=== PATIENT | male | born 1990 | race Caucasian/White ===

== ENCOUNTER 2017-03-01 13:25 | Emergency (ER) | payer OTHER ==
[~2017-03-01] VITALS: Ht 182.9 cm; Wt 85.5 kg
[2017-03-01] MEDS ORDERED: AMPICILLIN SOD/SULBACTAM SOD 3 GM in D5W MINI-BAG PLUS 100 ML IV ONE (17:30)
--- NOTE | 2017-03-01 18:10 | REP ---
Left hand series: Four views. History: Trauma. Findings: Four views of the left hand show overall normal mineralization. There is soft tissue emphysema in the dorsal soft tissues over the metacarpals. Soft tissue swelling is seen as well. No fracture or opaque foreign body is seen. Impression: Gas in the dorsal soft tissues over the metacarpals. No fracture or opaque foreign body seen. Signed by Tim Mathis MD 03/01/2017 06:41 P
--- NOTE | 2017-03-01 18:19 | REP ---
Left elbow series: Four views: History: Trauma. Olecranon process pain and swelling. Findings: Four views of the left elbow demonstrate diomedes olecranon soft tissue swelling consistent with contusion and/or olecranon bursitis. No joint effusion is seen. No fracture or subluxation is seen. No opaque foreign body noted. Impression: Diomedes olecranon soft tissue swelling. No acute bony abnormality. Signed by Tim Mathis MD 03/01/2017 06:42 P
[2017-03-01] MEDS ORDERED: KETOROLAC 30 MG/ML VIAL (J1885) IV ONE (18:30)
[2017-03-01 18:37] LABS: BASO # 0.1 K/mm3 (0.0-0.2); BASO % 0.7 % (0.0-1.0); EOS # 0.1 K/mm3 (0.0-0.50); EOS % 1.1 % (0.0-3.0); LARGE UNSTAINED CELL # 0.2 K/mm3 (0.0-0.4); LARGE UNSTAINED CELL % 1.8 % (0.0-4.0); LYMPH # 0.9 K/mm3 (1.5-6.5); LYMPH % 9.7 % (24.0-44.0); MEAN CORPUSCULAR HGB CONC 33.9 g/dl (32.0-36.5); MEAN CORPUSCULAR VOLUME 100.2 fl (80.0-96.0); MONO # 0.7 K/mm3 (0.0-0.8); MONO % 7.3 % (0.0-5.0); NEUTROPHILS # 7.5 K/mm3 (1.8-7.7); NEUTROPHILS % 79.4 % (36.0-66.0); PLATELET COUNT, AUTOMATED 177 k/mm3 (150-450); RED CELL DISTRIBUTION WIDTH 12.6 % (11.5-14.5); WHITE BLOOD COUNT 9.5 K/mm3 (4.0-10.0)
[2017-03-01 19:11] VITALS: BP 158/66
[2017-03-01] MEDS ORDERED: AUGM875T28 PO (20:03)
[2017-03-01] MEDS ORDERED: IBUP-1022 PO (20:03)
--- NOTE | 2017-03-02 10:07 | ED PDOC ---
Post-Departure Follow-Up radiology report faxed to [facility] Karolina Cole MD Mar 02, 2017 10:07
== END 2017-03-01 20:10 | disposition home or self-care (01) ==
LOC: M ED 13:25
DX: S63.92XA Sprain of unspecified part of left wrist and hand, initial encounter (principal); S60.222A Contusion of left hand, initial encounter; S50.02XA Contusion of left elbow, initial encounter; S61.432A Puncture wound without foreign body of left hand, initial encounter; L08.9 Local infection of the skin and subcutaneous tissue, unspecified; Y04.8XXA Assault by other bodily force, initial encounter; Y92.89 Other specified places as the place of occurrence of the external cause; Y93.89 Activity, other specified; Y99.8 Other external cause status; F17.200 Nicotine dependence, unspecified, uncomplicated
CPT/HCPCS: 29125; 36415; 73080; 73130; 85025; 86140; 96374; 96375; 99284; J1885

== ENCOUNTER 2017-08-24 13:48 | Inpatient (IN) | payer OTHER ==
[2017-08-24 14:27] LABS: HEMATOCRIT 48.6 % (42.0-52.0); MEAN CORPUSCULAR HEMOGLOBIN 32.8 pg (27.0-33.0); MEAN CORPUSCULAR VOLUME 93.6 fl (80.0-96.0); PLATELET COUNT, AUTOMATED 229 10^3/uL (150-450); RED BLOOD COUNT 5.19 10^6/uL (4.30-6.10); RED CELL DISTRIBUTION WIDTH 15.3 % (11.5-14.5)
[2017-08-24 14:53] LABS: AMPHETAMINES LEVEL URINE NEGATIVE (NEGATIVE); BARBITURATES URINE NEGATIVE (NEGATIVE); BENZODIAZEPINES URINE NEGATIVE (NEGATIVE); CANNABINOIDS URINE NEGATIVE (NEGATIVE); COCAINE METABOLITE URINE POSITIVE (NEGATIVE); METHADONE URINE NEGATIVE (NEGATIVE); OPIATES URINE NEGATIVE (NEGATIVE); PHENCYCLIDINE URINE NEGATIVE (NEGATIVE)
[2017-08-24 14:57] LABS: ALBUMIN 4.6 GM/DL (3.2-5.2); ALBUMIN/GLOBULIN RATIO 1.28 (1.00-1.93); ALKALINE PHOSPHATASE 94 U/L (45-117); ALT/SGPT 52 U/L (12-78); ANION GAP 9 MEQ/L (8-16); AST/SGOT 27 U/L (7-37); BILIRUBIN,DIRECT 0.1 MG/DL (0.0-0.2); BILIRUBIN,TOTAL 0.4 MG/DL (0.2-1.0); BLOOD UREA NITROGEN 8 MG/DL (7-18); CALCIUM LEVEL 9.4 MG/DL (8.5-10.1); CARBON DIOXIDE LEVEL 25 MEQ/L (21-32); CHLORIDE LEVEL 105 MEQ/L (98-107); CREATININE FOR GFR 1.18 MG/DL (0.70-1.30); ETHYL ALCOHOL (ETHANOL) 0.009 % (0.000-0.010); GLOMERULAR FILTRATION RATE > 60.0 (>60); GLUCOSE, FASTING 101 MG/DL (70-100); SALICYLATE LEVEL 2.8 MG/DL (5.0-30.0); SODIUM LEVEL 139 MEQ/L (136-145); TOTAL PROTEIN 8.2 GM/DL (6.4-8.2)
[2017-08-24 15:01] LABS: ACETAMINOPHEN LEVEL < 2.0 UG/ML (10.0-30.0)
[2017-08-24] MEDS ORDERED: ACETAMINOPHEN TAB 650MG DOSE (2X325MG) PO (15:45)
[2017-08-24] MEDS ORDERED: MOM 30ML SUSPENSION UDC PO (15:45)
[2017-08-24] MEDS ORDERED: MAALOX 30 ML SUSP *UDC PO (15:45)
[2017-08-24] MEDS: traZODone 50 MG TAB PO (21:00)
[2017-08-25] MEDS: SERTRALINE HCL 50 MG TAB PO (08:44)
[2017-08-25] MEDS: NICOTINE POLACRILEX 2 MG GUM PO ×2 (08:46→11:13)
[2017-08-25] MEDS ORDERED: SERTRALINE HCL 50 MG TAB PO (09:00)
[2017-08-25] MEDS: NICOTINE 21MG/24HR 1 EA TRANSDERMAL TD (12:01)
[2017-08-25] MEDS ORDERED: LORazepam 2 MG TAB PO (14:15)
[2017-08-25] MEDS: MULTIVITAMINS/MINERALS THERAP 1 TAB PO (14:43)
[2017-08-25] MEDS: FOLIC ACID 1 MG TAB PO (14:43)
[2017-08-25] MEDS: THIAMINE 100 MG TAB PO ×2 (14:43→20:28)
[2017-08-25] MEDS: traZODone 50 MG TAB PO (20:28)
[2017-08-25] MEDS: busPIRone 5 MG TAB PO (20:28)
[2017-08-26] MEDS: MULTIVITAMINS/MINERALS THERAP 1 TAB PO (09:18)
[2017-08-26] MEDS: buPROPion **XL** TABLET 150MG (WELLBUTRIN XL) PO (09:18)
[2017-08-26] MEDS: busPIRone 5 MG TAB PO ×2 (09:18→20:30)
[2017-08-26] MEDS: FOLIC ACID 1 MG TAB PO (09:18)
[2017-08-26] MEDS: THIAMINE 100 MG TAB PO ×2 (09:18→20:30)
[2017-08-26] MEDS: NICOTINE 21MG/24HR 1 EA TRANSDERMAL TD (09:20)
[2017-08-26] MEDS: hydrOXYzine 50 MG TAB PO (16:08)
[2017-08-27] MEDS: MULTIVITAMINS/MINERALS THERAP 1 TAB PO (08:09)
[2017-08-27] MEDS: NICOTINE 21MG/24HR 1 EA TRANSDERMAL TD (08:09)
[2017-08-27] MEDS: THIAMINE 100 MG TAB PO (08:09)
[2017-08-27] MEDS: buPROPion **XL** TABLET 150MG (WELLBUTRIN XL) PO (08:09)
[2017-08-27] MEDS: busPIRone 5 MG TAB PO (08:09)
[2017-08-27] MEDS: FOLIC ACID 1 MG TAB PO (08:09)
[2017-08-27] MEDS: hydrOXYzine 50 MG TAB PO ×2 (14:26→20:33)
[2017-08-27] MEDS: busPIRone 10 MG TAB PO (20:32)
[2017-08-28] MEDS: FOLIC ACID 1 MG TAB PO (08:22)
[2017-08-28] MEDS: MULTIVITAMINS/MINERALS THERAP 1 TAB PO (08:22)
[2017-08-28] MEDS: NICOTINE 21MG/24HR 1 EA TRANSDERMAL TD (08:22)
[2017-08-28] MEDS: buPROPion **XL** TABLET 150MG (WELLBUTRIN XL) PO (08:22)
[2017-08-28] MEDS: busPIRone 10 MG TAB PO ×2 (08:22→21:10)
[2017-08-28 13:27] LABS: CHLAMYDIA DNA AMPLIFICATION NEGATIVE (NEGATIVE); GC DNA AMPLIFICATION NEGATIVE (NEGATIVE)
[2017-08-28] MEDS: hydrOXYzine 50 MG TAB PO (21:10)
[2017-08-29] MEDS: hydrOXYzine 50 MG TAB PO ×2 (01:51→21:40)
[2017-08-29] MEDS: MULTIVITAMINS/MINERALS THERAP 1 TAB PO (08:04)
[2017-08-29] MEDS: FOLIC ACID 1 MG TAB PO (08:04)
[2017-08-29] MEDS: busPIRone 10 MG TAB PO ×2 (08:04→21:02)
[2017-08-29] MEDS: buPROPion **XL** TABLET 150MG (WELLBUTRIN XL) PO (08:04)
[2017-08-29] MEDS: NICOTINE 21MG/24HR 1 EA TRANSDERMAL TD (08:05)
[2017-08-30] MEDS: NICOTINE 21MG/24HR 1 EA TRANSDERMAL TD (08:02)
[2017-08-30] MEDS: busPIRone 10 MG TAB PO ×2 (08:02→21:04)
[2017-08-30] MEDS: MULTIVITAMINS/MINERALS THERAP 1 TAB PO (08:02)
[2017-08-30] MEDS: FOLIC ACID 1 MG TAB PO (08:02)
[2017-08-30] MEDS: buPROPion **XL** TABLET 150MG (WELLBUTRIN XL) PO (08:02)
[2017-08-30] MEDS: hydrOXYzine 50 MG TAB PO (21:04)
[2017-08-31] MEDS: MULTIVITAMINS/MINERALS THERAP 1 TAB PO (08:27)
[2017-08-31] MEDS: NICOTINE 21MG/24HR 1 EA TRANSDERMAL TD (08:27)
[2017-08-31] MEDS: FOLIC ACID 1 MG TAB PO (08:27)
[2017-08-31] MEDS: busPIRone 10 MG TAB PO ×2 (08:27→21:07)
[2017-08-31] MEDS: buPROPion **XL** TABLET 150MG (WELLBUTRIN XL) PO (08:27)
[2017-08-31] MEDS: hydrOXYzine 25 MG TAB PO (22:45)
[2017-09-01] MEDS: busPIRone 10 MG TAB PO ×2 (08:18→21:07)
[2017-09-01] MEDS: FOLIC ACID 1 MG TAB PO (08:19)
[2017-09-01] MEDS: buPROPion **XL** TABLET 150MG (WELLBUTRIN XL) PO (08:19)
[2017-09-01] MEDS: NICOTINE 21MG/24HR 1 EA TRANSDERMAL TD (08:19)
[2017-09-01] MEDS: MULTIVITAMINS/MINERALS THERAP 1 TAB PO (08:19)
[2017-09-01] MEDS: hydrOXYzine 25 MG TAB PO ×2 (14:10→22:13)
[2017-09-02] MEDS: FOLIC ACID 1 MG TAB PO (08:38)
[2017-09-02] MEDS: buPROPion **XL** TABLET 150MG (WELLBUTRIN XL) PO (08:38)
[2017-09-02] MEDS: NICOTINE 21MG/24HR 1 EA TRANSDERMAL TD (08:38)
[2017-09-02] MEDS: busPIRone 10 MG TAB PO (08:38)
[2017-09-02] MEDS: MULTIVITAMINS/MINERALS THERAP 1 TAB PO (08:38)
== END 2017-09-02 11:30 | disposition home or self-care (01) | DRG 881 ==
LOC: M ED 13:48 → M ED INP 15:35 → M PSY 17:45
DX: F32.9 Major depressive disorder, single episode, unspecified (principal); F41.9 Anxiety disorder, unspecified; F10.10 Alcohol abuse, uncomplicated; F90.9 Attention-deficit hyperactivity disorder, unspecified type; Z79.899 Other long term (current) drug therapy; G47.00 Insomnia, unspecified; F17.200 Nicotine dependence, unspecified, uncomplicated

== ENCOUNTER 2017-09-16 13:53 | Inpatient (IN) | payer OTHER ==
[2017-09-16 15:20] LABS: HEMATOCRIT 45.3 % (42.0-52.0); MEAN CORPUSCULAR HGB CONC 35.3 g/dl (32.0-36.5); MEAN CORPUSCULAR VOLUME 93.4 fl (80.0-96.0); PLATELET COUNT, AUTOMATED 234 10^3/uL (150-450); RED BLOOD COUNT 4.85 10^6/uL (4.30-6.10); RED CELL DISTRIBUTION WIDTH 14.2 % (11.5-14.5); WHITE BLOOD COUNT 12.3 10^3/uL (4.0-10.0)
[2017-09-16 15:49] LABS: ALBUMIN 4.5 GM/DL (3.2-5.2); ALBUMIN/GLOBULIN RATIO 1.36 (1.00-1.93); ALKALINE PHOSPHATASE 91 U/L (45-117); ALT/SGPT 43 U/L (12-78); ANION GAP 13 MEQ/L (8-16); AST/SGOT 37 U/L (7-37); BILIRUBIN,DIRECT 0.2 MG/DL (0.0-0.2); BILIRUBIN,TOTAL 0.9 MG/DL (0.2-1.0); BLOOD UREA NITROGEN 23 MG/DL (7-18); CALCIUM LEVEL 9.4 MG/DL (8.5-10.1); CARBON DIOXIDE LEVEL 22 MEQ/L (21-32); CHLORIDE LEVEL 101 MEQ/L (98-107); CREATININE FOR GFR 1.77 MG/DL (0.70-1.30); ETHYL ALCOHOL (ETHANOL) < 0.003 % (0.000-0.010); GLOMERULAR FILTRATION RATE 50.1 (>60); GLUCOSE, FASTING 94 MG/DL (70-100); POTASSIUM SERUM 4.5 MEQ/L (3.5-5.1); SALICYLATE LEVEL < 1.7 MG/DL (5.0-30.0); SODIUM LEVEL 136 MEQ/L (136-145); TOTAL PROTEIN 7.8 GM/DL (6.4-8.2)
[2017-09-16 16:21] LABS: ACETAMINOPHEN LEVEL < 2.0 UG/ML (10.0-30.0)
[2017-09-16 16:59] LABS: AMPHETAMINES LEVEL URINE POSITIVE (NEGATIVE); BARBITURATES URINE NEGATIVE (NEGATIVE); BENZODIAZEPINES URINE NEGATIVE (NEGATIVE); CANNABINOIDS URINE NEGATIVE (NEGATIVE); COCAINE METABOLITE URINE POSITIVE (NEGATIVE); METHADONE URINE NEGATIVE (NEGATIVE); OPIATES URINE NEGATIVE (NEGATIVE); PHENCYCLIDINE URINE NEGATIVE (NEGATIVE)
[2017-09-16] MEDS ORDERED: MOM 30ML SUSPENSION UDC PO (18:00)
[2017-09-16] MEDS ORDERED: MAALOX 30 ML SUSP *UDC PO (18:00)
[2017-09-16] MEDS ORDERED: ACETAMINOPHEN TAB 650MG DOSE (2X325MG) PO (18:00)
[2017-09-16] MEDS: OLANZapine ORAL DISINTEGRATING TAB 5MG PO (19:38)
[2017-09-16] MEDS ORDERED: HALOPERIDOL 5 MG TAB PO (20:15)
[2017-09-16] MEDS: busPIRone 10 MG TAB PO (21:47)
[2017-09-17] MEDS: NICOTINE 21MG/24HR 1 EA TRANSDERMAL TD (08:15)
[2017-09-17] MEDS: buPROPion **XL** TABLET 150MG (WELLBUTRIN XL) PO (08:15)
[2017-09-17] MEDS: busPIRone 10 MG TAB PO ×2 (08:15→21:20)
[2017-09-17] MEDS: OLANZapine ORAL DISINTEGRATING TAB 5MG PO (12:44)
[2017-09-17] MEDS: hydrOXYzine 50 MG TAB PO (21:20)
[2017-09-18 06:58] LABS: MEAN CORPUSCULAR HEMOGLOBIN 33.4 pg (27.0-33.0); MEAN CORPUSCULAR HGB CONC 34.9 g/dl (32.0-36.5); MEAN CORPUSCULAR VOLUME 95.8 fl (80.0-96.0); PLATELET COUNT, AUTOMATED 196 10^3/uL (150-450); RED BLOOD COUNT 4.49 10^6/uL (4.30-6.10); WHITE BLOOD COUNT 5.4 10^3/uL (4.0-10.0)
[2017-09-18 07:24] LABS: ALBUMIN 3.3 GM/DL (3.2-5.2); ALBUMIN/GLOBULIN RATIO 1.22 (1.00-1.93); ALKALINE PHOSPHATASE 72 U/L (45-117); ALT/SGPT 37 U/L (12-78); ANION GAP 6 MEQ/L (8-16); AST/SGOT 26 U/L (7-37); BILIRUBIN,TOTAL 0.2 MG/DL (0.2-1.0); BLOOD UREA NITROGEN 20 MG/DL (7-18); CALCIUM LEVEL 8.8 MG/DL (8.5-10.1); CARBON DIOXIDE LEVEL 28 MEQ/L (21-32); CHLORIDE LEVEL 106 MEQ/L (98-107); CREATININE FOR GFR 1.31 MG/DL (0.70-1.30); GLOMERULAR FILTRATION RATE > 60.0 (>60); GLUCOSE, FASTING 92 MG/DL (70-100); POTASSIUM SERUM 4.4 MEQ/L (3.5-5.1); SODIUM LEVEL 140 MEQ/L (136-145)
[2017-09-18] MEDS: buPROPion **XL** TABLET 150MG (WELLBUTRIN XL) PO (08:06)
[2017-09-18] MEDS: busPIRone 10 MG TAB PO ×2 (08:06→21:10)
[2017-09-18] MEDS: NICOTINE 21MG/24HR 1 EA TRANSDERMAL TD (08:07)
[2017-09-18] MEDS: OLANZapine ORAL DISINTEGRATING TAB 5MG PO (15:09)
[2017-09-18] MEDS: hydrOXYzine 50 MG TAB PO (21:10)
[2017-09-18] MEDS: traZODone 50 MG TAB PO (22:04)
[2017-09-19] MEDS: NICOTINE 21MG/24HR 1 EA TRANSDERMAL TD (08:14)
[2017-09-19] MEDS: buPROPion **XL** TABLET 150MG (WELLBUTRIN XL) PO (08:14)
[2017-09-19] MEDS: busPIRone 10 MG TAB PO ×2 (08:14→20:59)
[2017-09-19] MEDS: OLANZapine ORAL DISINTEGRATING TAB 5MG PO (14:04)
[2017-09-19] MEDS: hydrOXYzine 50 MG TAB PO (20:59)
[2017-09-19] MEDS: traZODone 50 MG TAB PO (20:59)
[2017-09-20] MEDS: buPROPion **XL** TABLET 150MG (WELLBUTRIN XL) PO (08:56)
[2017-09-20] MEDS: busPIRone 10 MG TAB PO ×2 (08:56→21:27)
[2017-09-20] MEDS: NICOTINE 21MG/24HR 1 EA TRANSDERMAL TD (08:57)
[2017-09-20] MEDS: hydrOXYzine 50 MG TAB PO (16:07)
[2017-09-20] MEDS: OLANZapine ORAL DISINTEGRATING TAB 5MG PO (16:08)
[2017-09-20] MEDS: LORazepam 1 MG TAB PO (21:27)
[2017-09-20] MEDS: traZODone 50 MG TAB PO (21:27)
[2017-09-21] MEDS: busPIRone 10 MG TAB PO (08:34)
[2017-09-21] MEDS: buPROPion **XL** TABLET 150MG (WELLBUTRIN XL) PO (08:34)
[2017-09-21 08:50] LABS: ALBUMIN/GLOBULIN RATIO 1.25 (1.00-1.93); ALKALINE PHOSPHATASE 83 U/L (45-117); ALT/SGPT 34 U/L (12-78); ANION GAP 6 MEQ/L (8-16); AST/SGOT 13 U/L (7-37); BILIRUBIN,TOTAL 0.2 MG/DL (0.2-1.0); BLOOD UREA NITROGEN 17 MG/DL (7-18); CALCIUM LEVEL 9.3 MG/DL (8.5-10.1); CARBON DIOXIDE LEVEL 30 MEQ/L (21-32); CHLORIDE LEVEL 104 MEQ/L (98-107); CREATININE FOR GFR 1.35 MG/DL (0.70-1.30); GLOMERULAR FILTRATION RATE > 60.0 (>60); GLUCOSE, FASTING 98 MG/DL (70-100); POTASSIUM SERUM 4.5 MEQ/L (3.5-5.1); SODIUM LEVEL 140 MEQ/L (136-145); TOTAL PROTEIN 7.2 GM/DL (6.4-8.2)
== END 2017-09-21 11:15 | disposition home or self-care (01) | DRG 881 ==
LOC: M ED 13:53 → M ED INP 17:56 → M PSY 19:29
DX: F32.9 Major depressive disorder, single episode, unspecified (principal); F41.9 Anxiety disorder, unspecified; F19.159 Other psychoactive substance abuse with psychoactive substance-induced psychotic disorder, unspecified; F10.10 Alcohol abuse, uncomplicated

== ENCOUNTER 2018-08-17 15:39 | Emergency (ER) | payer OTHER ==
[~2018-08-17] VITALS: Ht 182.9 cm; Wt 95.5 kg
[~2018-08-17 15:39] MED LIST: ANTA250T PO; AUGM875T28 PO; BUPR300T34 PO; BUSP10TA PO; DISU250T PO; HYDR-3363 PO; HYDR50TA70 PO; IBUP-1022 PO
[2018-08-17] MEDS ORDERED: ATOM60CA PO ×2 (15:54→17:38)
[2018-08-17] MEDS ORDERED: PROP60TA14 PO ×2 (15:54→17:38)
[2018-08-17] MEDS ORDERED: FLUO60TA6 PO (15:54)
[2018-08-17] MEDS ORDERED: FLUO40CA PO (17:38)
[2018-08-17 17:46] VITALS: BP 130/83
== END 2018-08-17 17:47 | disposition home or self-care (01) ==
LOC: M ED 15:39
DX: Z76.0 Encounter for issue of repeat prescription (principal); F32.9 Major depressive disorder, single episode, unspecified; F90.9 Attention-deficit hyperactivity disorder, unspecified type; F17.210 Nicotine dependence, cigarettes, uncomplicated

== ENCOUNTER → 2020-03-04 | Outpatient (REF) | payer BC ==
[~2020-03-04] MED LIST changes: +ATOM60CA PO; -BUPR300T34 PO; +BUPR300T92 PO; +FLUO40CA PO; +FLUO60TA6 PO; +PROP60TA14 PO
== END ==
LOC: M LAB REF 17:15
PROVIDERS: ATTEND Physician Assistant
DX: J00 Acute nasopharyngitis [common cold] (principal)

== ENCOUNTER → 2020-08-13 | Outpatient (REF) | payer BC ==
[2020-08-13 16:03] LABS: HEPATITIS C VIRUS ABY INDEX 0.1 INDEX (<0.8); HIV 1&2 SCREEN CENTAUR NEGATIVE (NEGATIVE)
== END ==
LOC: M LAB REF 12:18
PROVIDERS: ATTEND Family Medicine Addiction Medicine
DX: Z11.3 Encounter for screening for infections with a predominantly sexual mode of transmission (principal)